=== PATIENT | female | born 1980 | race African-American/Black ===

== ENCOUNTER 2021-03-11 07:18 | Emergency (ER) | payer SELFPAY ==
[~2021-03-11] VITALS: Ht 180.3 cm; Wt 90.7 kg
--- NOTE | 2021-03-11 08:01 | NUR ---
SEEN AND EXAMINED BY .
--- NOTE | 2021-03-11 08:09 | NUR ---
PT SEEN AND EXAMINED BY .
[2021-03-11 08:12] VITALS: BP 131/78
--- NOTE | 2021-03-11 08:23 | NUR ---
THE PATIENT IS RECEIVED IN ER BED #7. THE PATIENT IS ALERT AND ORIENTED X4. DENIES PAIN. IN ROOM AIR AND DENIES SOB. RESPIRATION REGULAR AND UNLABBORED. WILL CONTINUE TO MONITOR THE PATIENT.
--- NOTE | 2021-03-11 09:34 | NUR ---
LARY CHICAS AT BEDSIDE TO CHECK THE PORTABLE ULTRASOUND MACHINE
--- NOTE | 2021-03-11 09:45 | NUR ---
PT STATED SHE DOESNT HAVE THE PORTABLE ULTRASOUND MACHINE AND IT WAS IN ER BED 7.
[2021-03-11 09:46] LABS: BASOPHILS # (AUTO) 0.1 K/uL (0.0-0.2); BASOPHILS % (AUTO) 0.4 % (0.0-2.0); EOSINOPHILS % (AUTO) 0.2 % (0.0-6.0); HEMATOCRIT 43 % (33-45); HEMOGLOBIN 14.5 g/dL (11.5-14.8); LYMPHOCYTES # (AUTO) 1.9 K/uL (0.8-4.8); LYMPHOCYTES % (AUTO) 12.4 % (20.0-44.0); MEAN CORPUSCULAR HGB CONC 34 g/dl (31.0-36.0); MEAN CORPUSCULAR VOLUME 87 fL (82-100); MONOCYTES # (AUTO) 0.6 K/uL (0.1-1.30); MONOCYTES % (AUTO) 4.2 % (2.0-12.0); NEUTROPHILS # (AUTO) 12.6 K/uL (1.8-8.9); NEUTROPHILS % (AUTO) 82.8 % (43.0-81.0); PLATELET COUNT (AUTO) 270 K/uL (150-450); RED BLOOD CELL COUNT(AUTO) 4.93 MIL/uL (4.0-5.2); WHITE BLOOD COUNT (AUTO) 15.2 K/uL (4.3-11.0)
--- NOTE | 2021-03-11 10:05 | NUR ---
CARMELINA HASTINGS FROM THE FACILITY. LARY BASS.
[2021-03-11 10:09] LABS: CALCIUM, SERUM 8.7 mg/dL (8.5-10.1); CARBON DIOXIDE 26 mmol/L (21-32); CHLORIDE 101 mmol/L (98-107); CREATININE 0.9 mg/dL (0.6-1.3); GLUCOSE 86 mg/dL (74-106); POTASSIUM 3.2 mmol/L (3.5-5.1); SODIUM SERUM 140 mmol/L (136-145); UREA NITROGEN, BLOOD 13 mg/dL (7-18)
--- NOTE | 2021-03-11 11:10 | NUR ---
PT WAS FOUND NEAR [facility]. [employer] ON THE SCENE. LIVE STUDY MANAGER ABLE TO OBTAINED THE PORTABLE ULTRASOUND MACHINE FROM THE PT'S BAG.
[2021-03-11 14:50] LABS: BILIRUBIN,DIRECT 0.2 mg/dL (0.0-0.2); TOTAL PROTEIN, SERUM 8.1 g/dL (6.4-8.2)
== END 2021-03-11 12:54 | disposition left against medical advice (07) ==
LOC: ER 07:20
DX: R07.89 Other chest pain (principal); F12.10 Cannabis abuse, uncomplicated; Z53.29 Procedure and treatment not carried out because of patient's decision for other reasons
CPT/HCPCS: 36415; 76705-TC; 80048-TC; 80076-TC; 83690-TC; 84484-TC; 85025-TC

== ENCOUNTER 2021-03-11 12:54 | Emergency (ER) | payer SELFPAY ==
[~2021-03-11] VITALS: Ht 180.3 cm; Wt 90.7 kg
[2021-03-11 12:57] VITALS: BP 139/82
--- NOTE | 2021-03-11 13:06 | NUR ---
COVID SPECIMEN OBTAINED AND SENT TO LAB.
--- NOTE | 2021-03-11 14:16 | NUR ---
Patient discharged in custody in stable condition. Written and verbal after care instructions given. Patient verbalizes understanding of instruction.
== END 2021-03-11 14:17 ==
LOC: ER 12:56
DX: Z20.822 Contact with and (suspected) exposure to COVID-19 (principal); Z02.89 Encounter for other administrative examinations; Z59.00 Homelessness unspecified; F19.10 Other psychoactive substance abuse, uncomplicated; R03.0 Elevated blood-pressure reading, without diagnosis of hypertension
CPT/HCPCS: 87426; 99283; C9803